=== PATIENT | male | born 1970 | race Caucasian/White ===

== ENCOUNTER 2016-04-30 20:02 | Inpatient (IN) | payer OTHER ==
--- NOTE | ~2016-04-30 | HP ---
Unit #: [id number] #: [id number] Patient: HELEN KIM [id number] [address] [address] [id number] I MR#: [id number] NAME: HELEN KIM. ROOM: 49911 Age: 45 Sex: M Admission Date: 04/30/2016 : 1970 Attending Physician: Jose Luis Lloyd M.D. Primary Care Physician: [facility] Nick HISTORY AND PHYSICAL CHIEF COMPLAINT Right foot wound. HISTORY OF PRESENT ILLNESS The patient is a 45-year-old diabetic male who presented to [facility] emergency department with a complaint of right lower extremity wound. He states it has been present for three to four days, associated with mild pain. No fevers, no nausea, vomiting or diarrhea, associated with worsening right lower extremity redness. He states this redness initially started just on the dorsal aspect of his foot but has started to spread up his lower extremity and is now nearly to his knee. PAST MEDICAL HISTORY Diabetes. PAST SURGICAL HISTORY 1. He had some neck surgery secondary to a brown recluse bite. 2. Finger surgery. 3. He states he had surgery on his right toe secondary to an ingrown toenail years ago. 4. Peripheral neuropathy. SOCIAL HISTORY No tobacco, alcohol or illicit drug use. 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 FAMILY HISTORY Diabetes. ALLERGIES Penicillin. HOME MEDICATIONS 1. Lisinopril 20 mg p.o. daily. 2. Metformin 1000 mg p.o. b.i.d. 3. Claritin 10 mg daily. 4. Glipizide 10 mg p.o. b.i.d. 5. Invokana 100 mg p.o. daily. 6. Neurontin 600 mg p.o. q.i.d. REVIEW OF SYSTEMS Ten point review of systems was obtained, negative except as per HPI. PHYSICAL EXAMINATION Unit #: [id number] #: [id number] Patient: HELEN KIM VITAL SIGNS: Temperature 98.0, pulse 82, blood pressure 146/69. GENERAL: 45-year-old male in no acute distress who appears stated age. HEENT: Pupils equally round. Extraocular movements intact. Mucous membranes dry. NECK: Supple. No JVD, no lymphadenopathy. CARDIAC: Regular rate and rhythm. No murmurs, gallops or rubs. LUNGS: Clear to auscultation bilaterally. ABDOMEN: Nontender, nondistended. Positive bowel sounds. EXTREMITIES: No clubbing or edema. He has got right lower extremity edema that is trace. PSYCH: Alert and oriented x3. Affect is appropriate. NEUROLOGICAL: Cranial nerves II-XII intact grossly. The patient moves all extremities equally and with purpose. SKIN: Right lower extremity erythema to approximately 3 cm below his knee. It is circumferential. It blanches. Otherwise, skin is warm and dry. MUSCULOSKELETAL: No muscle or joint pain, no muscle or joint swelling. DIAGNOSTIC STUDIES LABORATORY: Creatinine is 1.7, glucose 131, white blood cell count is 8.0, hemoglobin 11.1, platelets 496. IMAGING: X-ray of patient's right foot shows no acute abnormalities. ASSESSMENT AND PLAN 1. Cellulitis: The patient has been started on vancomycin and cefepime to cover methicillin resistant Staph aureus, Pseudomonas and Enterobacter. 2. Diabetic foot wound: I have placed a consult to the wound nurse. The patient's foot film shows no evidence of osteomyelitis. 3. Diabetes: The patient was started on low dose sliding scale insulin. 4. Acute kidney injury: Started the patient on fluids and held his BEN inhibitor. His baseline creatinine is unknown. His creatinine has been approximately 1.7 wince the beginning of the month with no other values available since January 2014. 5. Prophylaxis: The patient has been started on Lovenox. Dictated by Jose Luis Lloyd M.D. RAIZA/baldemar TD: 05/01/2016 05:20 JOB #: [id number] HISTORY AND PHYSICAL X Jose Luis Lloyd MD X HISTORY AND PHYSICAL
--- NOTE | ~2016-04-30 | US136 ---
[facility] A Service of [facility] & [facility] RADIOLOGY TEXT RESULTS PATIENT: HELEN KIM LOCATION: [place] [id number] : [birth year] UNIT #: [id number] AGE: [address]: Morales Pichardo MD SEX: M ORDER DR: [id number] [facility] [address] [facility] [place] [facility]. [place], [place] [address] [id number] I MR#: [id number] Acc #: [id number] NAME: HELEN KIM : 1970 SEX: M STUDY DATE/TIME: 05/02/2016 8:34 UNIT: [facility] ROOM: [facility] STUDY DESCRIPTION: US U/L Ext Art Study Ltd Bilat Attending Physician: Morales Pichardo M.D. Ordering Physician: Morales Pichardo M.D. Primary Care Physician: [facility] MEDICAL IMAGING REPORT This report is preliminary unless electronic signature is present EXAM Bilateral lower extremity ankle-brachial indices, 05/02/2016 HISTORY History of diabetes and bilateral lower extremity claudication with diabetic right foot infection. FINDINGS Brachial pressure is 147 mmHg on the right. It is 193 in the right dorsalis pedis and 176 in the left yielding ankle-brachial indices of 1.31 on the right and 1.20 on the left. Digital pressures in the feet are normal bilaterally as well, 120 mmHg on the right and 165 on the left. IMPRESSION Normal ankle-brachial indices of 1.31 on the right and 1.20 on the left with preserved waveforms, as well as normal digital pressures in both feet. Dictated by... Juan Boone M.D. THIS IS AN ELECTRONICALLY VERIFIED REPORT Juan Boone M.D. at 05/03/2016 8:13 AM KANE/ryley TD: 05/02/2016 11:41 JOB #: [id number] MEDICAL IMAGING REPORT COPY
--- NOTE | ~2016-04-30 | CR127 ---
[facility] A Service of [facility] & [facility] RADIOLOGY TEXT RESULTS PATIENT: HELEN KIM LOCATION: [place] [address] : [birth year] UNIT #: [id number] AGE: [address]: Morales Pichardo MD SEX: M ORDER DR: [id number] [facility] [address] [facility]. [place], [place] [address] [id number] I MR#: [id number] Acc #: [id number] NAME: HELEN KIM. : 1970 SEX: M STUDY DATE/TIME: 04/30/2016 19:21 UNIT: [facility] ROOM: 61279 STUDY DESCRIPTION: CR Foot Complete Min 3 View Rt Attending Physician: Jose Luis Lloyd M.D. Ordering Physician: Ajay Davis M.D. Primary Care Physician: [facility], MEDICAL IMAGING REPORT This report is preliminary unless electronic signature is present EXAM Right foot, 3 views, 04/30/2016 1921 hours HISTORY Patient complains of 4-day history of pain, swelling and numbness and tingling of the foot. Symptoms for 4 days after patient cut foot inside steel-toe boot. COMPARISON 04/11/2013 FINDINGS AP, lateral and oblique views demonstrate diffuse soft tissue swelling over the visualized portions of the lower leg and foot. There is no soft tissue gas or foreign body. There is sclerotic change at the distal aspect of the proximal phalanx where lucency was seen on prior study 04/11/2013, likely a healed area of prior trauma or infection. There is subtle lateral periosteal thickening at the midshaft of the fourth metatarsal, new from the prior study, which could represent a healed or healing stress fracture. No acute fracture is seen. IMPRESSION 1. Diffuse significant subcutaneous edema over the visualized portions of the lower leg and diffusely over the foot with no acute fracture, foreign body or soft tissue gas. 2. Sclerotic appearance at distal first metatarsal where previous inflammation was seen on MRI 2013. This is likely healing response. 3. Very subtle lateral periosteal thickening along the midshaft of the fourth metatarsal could represent a healed or healing stress fracture. STAT * RESULT [facility] A Service of [facility] & [facility] RADIOLOGY TEXT RESULTS PATIENT: HELEN KIM LOCATION: [place] [address] : [birth year] UNIT #: [id number] AGE: [address]: Morales Pichardo MD SEX: M ORDER DR: Dictated by... Penelope Pruitt M.D. THIS IS AN ELECTRONICALLY VERIFIED REPORT Penelope Pruitt M.D. at 05/01/2016 9:34 AM SUSANNAH/soni TD: 04/30/2016 19:51 JOB #: [id number] MEDICAL IMAGING REPORT COPY
--- NOTE | ~2016-04-30 | US85 ---
[facility] A Service of [facility] RADIOLOGY TEXT RESULTS PATIENT: HELEN KIM LOCATION: [facility] : 74 UNIT #: [id number] AGE: [address]: Morales Pichardo MD SEX: M ORDER DR: [id number] [facility] [address] [facility] [address] [place], [place] [address] [id number] I MR#: [id number] Acc #: [id number] NAME: HELEN KIM : 1970 SEX: M STUDY DATE/TIME: 05/01/2016 19:39 UNIT: [facility] ROOM: [address] [place] [address] DESCRIPTION: US LE Veins Unilat or Ltd Stdy Attending Physician: Morales Pichardo M.D. Ordering Physician: Radha Pena D.P.M. [facility] MED[facility] IMAGING REPORT This report is preliminary unless electronic signature is present EXAM Right lower extremity venous Doppler exam, 05/01/2016 1939 hours HISTORY Right lower extremity pain, swelling and redness for 4 days. History of steel toe from boot eroding sore on foot 4 days ago. Red bump on cook. History of neuropathy. COMPARISON None. FINDINGS Multiple transverse and longitudinal sonographic images were obtained through the lower extremity venous system with compression, color flow and Doppler. There is no evidence of deep venous thrombosis. Vessels are compressible. There is flow with color and Doppler. Note is made of enlarged lymph nodes in the left inguinal region measuring up to 3.4 x 1.0 x 3.1 cm. IMPRESSION 1. Negative left lower extremity venous Doppler exam. No evidence of DVT. 2. Enlarged left inguinal lymph nodes are present. Dictated by... Penelope Pruitt M.D. THIS IS AN ELECTRONICALLY VERIFIED REPORT Penelope Pruitt M.D. at 05/02/2016 9:25 AM [facility] A Service of [facility] RADIOLOGY TEXT RESULTS PATIENT: HELEN KIM LOCATION: [place] [address] : [birth year] UNIT #: [id number] AGE: [address]: Morales Pichardo MD SEX: M ORDER DR: SUSANNAH/soni TD: 05/02/2016 00:12 JOB #: [id number] MEDICAL IMAGING REPORT COPY
--- NOTE | ~2016-04-30 | BMI ---
[facility] Nutrition Therapy DATE: 05/02/16 Patient: HELEN IKM Physician: BETH Address: [address] Room/Bed: [address] [place] [address], Zip: [place] [address] Admit Date: 04/30/16 Date of : [birth year] Height: 6 0 Weight: 324 147.4 HIGH BMI NOTE: DX: 45 Y.O. MALE ADMITTED FOR CELLULITIS ANTHROPOMETRICS: 6'0", WT: 324# (147 KG), BMI: 43.9 DIET: CC INTERVENTION: 1. CC DIET RECOMMENDATIONS: 1. RECOMMEND TO ADD HH TO CURRENT DIET ORDER ABOVE TO PROMOTE GRADUAL WEIGHT LOSS TOWARDS HEALTHY BMI (19.0-25.0) OR +/-10%IBW RD WILL F/U PER PROTOCOL Respectfully, GLENNY BROWN MS, RD, LD Food and Nutritional Services [facility] cc: client file
--- NOTE | ~2016-04-30 | DS ---
Unit #: [id number] #: [id number] Patient: HELEN KIM [id number] [address] [place], [place] [address] [id number] I MR#: [id number] NAME: HELEN KIM. ROOM: 465 Age: 45 Sex: M Admission Date: 04/30/2016 : 1970 Discharge Date: 05/03/2016 Attending Physician: Morales Pichardo M.D. Primary Care Physician: [facility] DISCHARGE SUMMARY DISCHARGE DIAGNOSES 1. Cellulitis in the right foot. 2. Diabetes foot. 3. Type 2 diabetes uncontrolled with A1c of 8.4. 4. Chronic kidney disease, stage 3. 5. Essential hypertension. 6. Morbidly obese with BMI of 44. 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 PROCEDURES None. IMAGING STUDIES Consists of x-ray of the foot on 04/30/2016. Impression: 1. Diffuse significantly subcutaneous edema over the visualized portions of the lower leg and diffusely over the foot with no acute fracture, foreign body, or soft tissue gas. 2. Sclerotic appearance at distal first metatarsal where previous inflammation was seen on MRI 03/01/2017 there. This is likely a healing response. 3. Very subtle lateral periosteal thickening along the mid shaft of the fourth metatarsal, could represent a healed or healing stress fracture. Left lower extremity ultrasound: 1. Negative for left lower extremity venous Doppler exam, no evidence DVT. 2. Enlarged left inguinal lymph nodes are present. JOSE ANGEL of the ankle-brachial index of the left lower extremity. Impression: 1. Normal ankle-brachial indices of 1.31 on the right and 1.20 on the left with preserved waveforms, as well as normal digital pressures on both feet. LABORATORY STUDIES On the day of discharge, patients cultures includes blood culture with no growth, and wound culture of the foot with a gram variable cocci. Glucose of 243, BUN 33, creatinine 1.6, sodium 135, potassium 4.4, chloride 107, CO2 25, calcium 8.5, total protein of 7.4, albumin 3.2, total bilirubin is 0.5. CBC with WBC of 9.5, rbc's 3.95, hemoglobin 10.8, hematocrit 33.7, MCV 83.4, MCH 27.4, MCHC is 32.8, RDW 13.8, platelet is 454, MPV is 7.5. Unit #: [id number] #: [id number] Patient: HELEN KIM HOSPITAL COURSE The patient is a 45-year-old male with a past medical history of diabetes and essential hypertension, presents to the emergency department with complaint of right lower extremity wound. He states that this has been present for three to four days prior to admission and associated with mild pain. The patient had denied fever, nausea, vomiting, diarrhea, associated with pain but he had had worsening of right lower extremity redness. He states that the redness initially started just at the dorsal aspect of the fifth but has started to spread into his lower extremity and is close to below his knee. The patient was admitted for cellulitis of the right foot to be treated with IV antibiotics including vancomycin and cefepime. The patient was seen in consultation with the wound care nurse and patient was hydrated to due to unknown baseline an d kidney function. With regards to his chronic kidney disease, the patient disappeared to have chronic kidney disease with a creatinine of 1.6. On the day of discharge his creatinine has been maintained on 51.5 to 1.7 during this hospitalization, despite IV fluid hydration, due to patient's uncontrolled diabetes with A1c of 8.5 and an infected foot. Podiatry was consulted. The patient had a lower extremity Doppler to evaluate for the possibility of DVT, which was negative with much swelling and there was very faint pulse in right foot, therefore, an ankle-brachial index was ordered, which revealed good flow to bilateral foot, therefore podiatry had offered no surgical intervention at this time. At this time, the patient's blood culture had no growth. Wound culture is swabbed by podiatry, had very few cocci. It is thought that patient is stable to be discharged with outpatient IV infusion of Orbactiv at short stay with regards to patient's uncontrolled diabetes with A1c of 8.5. I have initiated Levemir 10 units subcutaneously at bedtime and to be increased if needed by primary care physician. The patient will also be discharged with NovoLog low dose sliding scale insulin. Patient was instructed to keep a log of his premeal and bedtime insulin to hold his insulin if blood sugars less than 150, in follow with his primary care physician for further adjustment in his insulin. Due to patient's chronic kidney disease, I am recommending the patient to not restart back on his metformin. DISCHARGE CONDITION Stable. DISCHARGE FOLLOWUP Follow up with primary care physician within one to two weeks. Follow up with podiatry as needed. I am asking [facility] to come out to help with wound care. DISCHARGE MEDICATIONS 1. Stopping metformin 1,000 mg orally twice daily as previously. 2. Neurontin 600 mg oral 4 times daily. 3. Claritin 10 mg orally daily. 4. Lisinopril 20 mg orally daily. 5. Levemir 10 units subcutaneously every evening, hold for blood sugar of less than 110. 6. NovoLog low dose sliding scale insulin prior to meals and at bedtime. 7. Invokana 100 mg orally daily. 8. Glipizide 10 mg orally twice daily. 9. Orbactiv 120 mg IV infused over 3 hours at the short stay clinic. Dictated by... Meagan Landrum PA-C for Morales Pichardo M.D. Unit #: [id number] #: [id number] Patient: HELEN KIM LISA/iveth TD: 05/04/2016 07:49 JOB #: [id number] DISCHARGE SUMMARY X X DISCHARGE SUMMARY
[2016-04-30 18:26] LABS: BASOPHIL# 0.2 X10e3 (0-0.3); BASOPHIL% 2.3 % (0-2.5); EOSINOPHIL# 0.4 X10e3 (0-0.7); EOSINOPHIL% 5.3 % (0.0-7.0); HEMATOCRIT 34.3 % (38.0-50.0); HEMOGLOBIN 11.1 gm/dL (13.0-16.0); LYMPHOCYTE% 25.4 % (17.0-45.0); MEAN CELL VOLUME 83.9 FL (83-96); MEAN CORPUSCULAR HEMOGLOBIN 27.2 PG (28-34); MEAN CORPUSCULAR HGB CONC 32.4 g/dL (30-36); MEAN PLATELET VOLUME 7.4 FL (6.5-11.5); MONOCYTE# 0.8 X10e3 (0-1.0); MONOCYTE% 10.1 % (3.0-12.0); NEUTROPHIL# 4.5 X10e3 (1.5-7.1); NEUTROPHIL% 56.9 % (40-75); PLATELET COUNT 496 X10e3 (140-420); RED BLOOD COUNT 4.09 X10e (3.90-5.60); RED CELL DISTRIBUTION WIDTH 13.8 % (11.0-15.5)
[2016-04-30 18:28] LABS: DIFF IND NO
[2016-04-30 18:50] LABS: BUN/CREATININE RATIO 13.52; CREATININE SERUM 1.7 mg/dL (0.6-1.4); POTASSIUM 4.6 mmol/L (3.5-5.1)
[~2016-04-30 20:02] MED LIST: CLARITIN10 M2 PO; FLEXERIL10 MG PO; GLIPIZIDE10 MG PO; GLUCOTROL PO; INVOKANA100 MG PO; LEVAQUIN750 M1 PO; LISINOPRIL20 MG PO; LORTAB 5/500 TA1 TA1 PO; MEDROL4 MG/DOSE- PO; METFORMIN HCL1000 M1 PO; METFORMIN PO; MOTRIN100 MG PO; NEURONTIN600 MG PO; PHENERGAN25 M1 PO; VICODIN 5/1 TAB 5/50 PO; ZYVOX600 MG PO
[2016-05-01 04:59] LABS: BASOPHIL# 0.2 X10e3 (0-0.3); BASOPHIL% 1.8 % (0-2.5); DIFF IND NO; EOSINOPHIL# 0.6 X10e3 (0-0.7); EOSINOPHIL% 6.1 % (0.0-7.0); HEMATOCRIT 33.1 % (38.0-50.0); HEMOGLOBIN 10.7 gm/dL (13.0-16.0); LYMPHOCYTE# 2.2 X10e3 (1.0-3.5); MEAN CORPUSCULAR HEMOGLOBIN 27.2 PG (28-34); MEAN CORPUSCULAR HGB CONC 32.4 g/dL (30-36); MEAN PLATELET VOLUME 7.6 FL (6.5-11.5); MONOCYTE# 0.9 X10e3 (0-1.0); MONOCYTE% 9.5 % (3.0-12.0); NEUTROPHIL# 5.3 X10e3 (1.5-7.1); NEUTROPHIL% 58.6 % (40-75); PLATELET COUNT 463 X10e3 (140-420); RED BLOOD COUNT 3.95 X10e (3.90-5.60); RED CELL DISTRIBUTION WIDTH 13.8 % (11.0-15.5)
[2016-05-01 05:19] LABS: BUN/CREATININE RATIO 14.37; CALCIUM SERUM 8.3 mg/dL (8.4-10.2); CREATININE SERUM 1.6 mg/dL (0.6-1.4); GLOM FILT RATE Estimated 50.4 mL/min (>60); POTASSIUM 4.3 mmol/L (3.5-5.1)
[2016-05-02 03:25] LABS: BASOPHIL# 0.1 X10e3 (0-0.3); BASOPHIL% 1.4 % (0-2.5); EOSINOPHIL# 0.5 X10e3 (0-0.7); EOSINOPHIL% 5.5 % (0.0-7.0); HEMATOCRIT 32.8 % (38.0-50.0); HEMOGLOBIN 10.6 gm/dL (13.0-16.0); LYMPHOCYTE% 21.7 % (17.0-45.0); MEAN CELL VOLUME 83.8 FL (83-96); MEAN CORPUSCULAR HEMOGLOBIN 27.1 PG (28-34); MEAN CORPUSCULAR HGB CONC 32.4 g/dL (30-36); MEAN PLATELET VOLUME 7.4 FL (6.5-11.5); MONOCYTE# 0.8 X10e3 (0-1.0); MONOCYTE% 8.9 % (3.0-12.0); NEUTROPHIL# 5.6 X10e3 (1.5-7.1); NEUTROPHIL% 62.5 % (40-75); PLATELET COUNT 464 X10e3 (140-420); RED BLOOD COUNT 3.91 X10e (3.90-5.60); RED CELL DISTRIBUTION WIDTH 13.7 % (11.0-15.5)
[2016-05-02 03:26] LABS: DIFF IND NO
[2016-05-02 03:35] LABS: BUN/CREATININE RATIO 16.66; CALCIUM SERUM 8.8 mg/dL (8.4-10.2); CREATININE SERUM 1.5 mg/dL (0.6-1.4); GLOM FILT RATE Estimated 54.3 mL/min (>60)
[2016-05-03 02:47] LABS: HEMOGLOBIN 10.8 gm/dL (13.0-16.0); MEAN CELL VOLUME 83.4 FL (83-96); MEAN CORPUSCULAR HEMOGLOBIN 27.4 PG (28-34); MEAN CORPUSCULAR HGB CONC 32.8 g/dL (30-36); MEAN PLATELET VOLUME 7.5 FL (6.5-11.5); RED BLOOD COUNT 3.95 X10e (3.90-5.60); RED CELL DISTRIBUTION WIDTH 13.8 % (11.0-15.5); WHITE BLOOD COUNT 9.5 X10e3 (4.0-10.5)
[2016-05-03 03:11] LABS: BUN/CREATININE RATIO 20.62; CALCIUM SERUM 8.5 mg/dL (8.4-10.2); CREATININE SERUM 1.6 mg/dL (0.6-1.4); GLOM FILT RATE Estimated 50.4 mL/min (>60); POTASSIUM 4.4 mmol/L (3.5-5.1)
[2016-05-03] MEDS ORDERED: ORBACTIV400 MG IV (12:45)
[2016-05-03] MEDS ORDERED: LEVEMIR100 UNITS/ SUBQ (12:48)
[2016-05-03] MEDS ORDERED: NOVOLOG100 U/ML SUBQ (12:51)
== END 2016-05-03 13:50 | disposition home or self-care (01) | DRG 623 ==
LOC: CED 20:02 → CEDOF 22:32 → C4C 05-01 09:20
PROVIDERS: Emergency Medicine; Internal Medicine; Physician Assistant Medical
PROC: 0JBQ0ZZ Excision of Right Foot Subcutaneous Tissue and Fascia, Open Approach (ICD-10-PCS; principal; 2016-05-01)
DX: E11.621 Type 2 diabetes mellitus with foot ulcer (principal); L03.115 Cellulitis of right lower limb; L97.519 Non-pressure chronic ulcer of other part of right foot with unspecified severity; E11.42 Type 2 diabetes mellitus with diabetic polyneuropathy; E11.22 Type 2 diabetes mellitus with diabetic chronic kidney disease; N17.9 Acute kidney failure, unspecified; N18.3 Chronic kidney disease, stage 3 (moderate); Z68.41 Body mass index [BMI] 40.0-44.9, adult; Z79.84 Long term (current) use of oral hypoglycemic drugs; E11.628 Type 2 diabetes mellitus with other skin complications; Z88.0 Allergy status to penicillin; E66.01 Morbid (severe) obesity due to excess calories; E11.65 Type 2 diabetes mellitus with hyperglycemia; I12.9 Hypertensive chronic kidney disease with stage 1 through stage 4 chronic kidney disease, or unspecified chronic kidney disease
CPT/HCPCS: 36415; 73630; 80048; 80202; 82947; 83036; 85025; 85027; 87040; 87070; 87077; 87205; 93922; 93971; 96361; 96365; 96368; 99285; J0692; J1815; J3370

== ENCOUNTER 2016-09-18 16:59 | Inpatient (IN) | payer OTHER ==
--- NOTE | ~2016-09-18 | OR ---
Unit #: [id number] #: [id number] Patient: HELEN KIM [id number] [address] [place], [place] [address] [id number] I MR#: [id number] NAME: HELEN KIM. ROOM: 469 Date of Procedure: 09/21/2016 Admission Date: 09/19/2016 Surgeon: Brodie Leyva M.D. : 1970 Attending Physician: Isabel Pickett M.D. Primary Care Physician: Counts Include [facility] OPERATIVE REPORT PREOPERATIVE DIAGNOSES 1. Right fifth metatarsal head osteomyelitis. 2. Septic right fifth metatarsophalangeal joint. POSTOPERATIVE DIAGNOSES 1. Right fifth metatarsal head osteomyelitis. 2. Septic right fifth metatarsophalangeal joint. PROCEDURE PERFORMED Right fifth toe and fifth metatarsal partial amputation (68055). 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 ANESTHESIA General. INDICATIONS FOR SURGERY The patient is a 46-year-old non-insulin dependent diabetic, who is morbidly obese, who stepped on a rock, which caused an ulceration on the plantar aspect of his right foot. He noticed an ulceration under the right fifth toe 2 weeks ago and this is now worsen to cause swelling, warmth, and erythema. The patient complains of pain in the right plantar lateral foot. Arterial Dopplers show satisfactory blood supply to the foot. MRI documents fifth metatarsal head osteomyelitis. The patient is therefore admitted to undergo right fifth toe and fifth ray amputation. DESCRIPTION OF PROCEDURE The patient was taken to the operating room and placed in supine position and general anesthetic was induced. The right foot was identified as the correct operative extremity during the time-out procedure. The IV antibiotic protocol was not followed because the patient was on preoperative IV antibiotics. The right foot was then prepped and draped in the usual sterile fashion. The foot was exsanguinated with an Esmarch bandage, which was left wrapped around his ankle to act as a tourniquet. A racket incision was made along the lateral aspect of the fifth metatarsal and extended around the base of the fifth toe. The subcutaneous tissue was carefully divided. Dissection proceeded directly down to the fifth metatarsophalangeal joint. Purulence was obtained in the joint and this was cultured for aerobic and anaerobic bacteria. The collateral ligaments, extensor tendons, and flexor tendons Unit #: [id number] #: [id number] Patient: HELEN KIM were divided and the toe was removed and sent to pathology. The fifth metatarsal was then exposed subperiosteally. Baby Hohmann retractors were placed and the microsagittal saw was used to cut the fifth metatarsal at the junction of the proximal third and distal two-thirds. The bone was sent to pathology. The wounds were copiously irrigated. All necrotic-appearing tissue was debrided. The plantar ulceration was left intact. The tourniquet was released and bleeding was controlled with electrocautery. The subcutaneous tissue was closed with interrupted 2-0 Vicryl sutures. The skin was closed with 3-0 nylon interrupted [id number] sutures. Xeroform gauze, dressing, sponges, cast padding, Enio wrap, and postoperative shoe were placed. The patient was then transported to the recovery room in stable condition. ESTIMATED BLOOD LOSS Minimal. COMPLICATIONS None. SPECIMENS Right fifth toe and fifth metatarsal as well as aerobic and anaerobic cultures, fifth metatarsophalangeal joint. PLAN The patient will continue IV antibiotics per recommendations of the Infectious Disease service. He will follow up in my office in 1 week for wound check. I would expect his plantar ulceration to heal in secondarily. Dictated by.Praful Dey/natalia TD: 09/21/2016 18:37 JOB #: [id number] OPERATIVE REPORT Page 1 of 1 X Larissa Leyva MD X PROCEDURE OPERATIVE NOTE
--- NOTE | ~2016-09-18 | CR127 ---
[facility] A Service of [facility] & [facility] RADIOLOGY TEXT RESULTS PATIENT: HELEN KIM LOCATION: [place] [address] : [birth year] UNIT #: [id number] AGE: [address]: Isabel Pickett MD SEX: M ORDER DR: [id number] [facility] [address] [place], [place] [address] [id number] I MR#: [id number] Acc #: [id number] NAME: HELEN KIM. : 1970 SEX: M STUDY DATE/TIME: 09/18/2016 17:54 UNIT: [facility] ROOM: [facility] STUDY DESCRIPTION: CR Foot Complete Min 3 View Rt Attending Physician: Isabel Pickett M.D. Ordering Physician: Christo Barraza M.D. [facility] MED[facility] IMAGING REPORT This report is preliminary unless electronic signature is present EXAM Right foot, 3 views, 09/18/2016. HISTORY Right foot pain and swelling after stepping on a sharp rock 3 days ago. FINDINGS Three views of the right foot demonstrated no fracture. The bones are normally mineralized. There is soft tissue swelling about the right foot. No foreign body is seen. IMPRESSION Soft tissue swelling about the right foot. No evidence of fracture or radiopaque foreign body. Dictated by... Albin Martinez M.D. THIS IS AN ELECTRONICALLY VERIFIED REPORT Albin Martinez M.D. at 09/20/2016 6:18 AM KENDALL/ivania TD: 09/19/2016 13:55 JOB #: [id number] MEDICAL IMAGING REPORT Page 1 of 1 COPY
--- NOTE | ~2016-09-18 | CO ---
Unit #: [id number] #: [id number] Patient: HELEN KIM [id number] [address] [place], [place] [address] [id number] I MR#: [id number] NAME: HELEN KIM. ROOM: 469 Age: 46 Sex: M Admission Date: 09/19/2016 : 1970 Attending Physician: Isabel Pickett M.D. Primary Care Physician: [facility]. Consultation Date: 09/20/2016 CONSULTATION REPORT INFECTIOUS DISEASE CONSULTATION Patient is admitted by Dr. Almanza. REASON FOR CONSULTATION Diabetic foot ulcer. HISTORY OF PRESENT ILLNESS This is a 46-year-old male with a history of diabetes greater than 20 years. The patient also has noted peripheral neuropathy. Patient reports that he had injury to his foot greater than one week ago where he stepped on a stone. Patient reports that he did get a wound and he was doing local wound care at home. Patient reports he was not taking any antibiotics at home and he was not having any fever; however, he continued with pain and swelling and came to the emergency room. The patient's initial film was not consistent with osteomyelitis; however, patient was admitted for soft tissue infection and further wound care management. PAST MEDICAL HISTORY Includes neuropathy, diabetes, and hypertension. PAST SURGICAL HISTORY Cervical disc surgery, surgery on finger, right great to surgery. ALLERGIES Penicillin with unknown reaction. He reports this happened as a child. MEDICATIONS Patient is currently on vancomycin and cefepime. Further medications please refer to patient's MAR. SOCIAL HISTORY The patient has no evidence of alcohol or tobacco abuse. He lives at home with family. REVIEW OF SYSTEMS The patient denies any fevers, chills, chest pain, shortness of breath, wheezes, productive cough. He does report nausea, dry heaves, no diarrhea. He reports he is able to feel pain in his foot, with some drainage and swelling noted. PHYSICAL EXAMINATION VITAL SIGNS: Temperature is 98.5 with a T. max of 100.0, pulse 79, blood pressure 115/54, respiratory rate is 18. Unit #: [id number] #: [id number] Patient: HELEN KIM GENERAL: This is a no apparent distress male who does appear somewhat ill during my exam. HEENT: His pupils are equal. NECK: Supple. CARDIOVASCULAR: S1 and S2, regular rate and rhythm. PULMONARY: Clear to auscultation bilaterally with no wheezes or rhonchi noted. ABDOMEN: Positive bowel sounds, soft, obese, and rounded. EXTREMITIES: Right foot reveals a plantar wound that is approximately a quarter size. Directly center to the wound there appears to be some purulent draining material with positive odor. DIAGNOSTIC STUDIES LABORATORY STUDIES: BUN 25, creatinine 1.6, sodium 137, potassium 4.7, chloride 107, CO2 24, bilirubin 0.3, AST 13, ALT 14, lactic acid is 1.1, CRP was not done this admission. White blood cell count is 9.2, hemoglobin 10.1, hematocrit 31.6, platelets 406. Microbiology data - foot cultures currently pending. MRI: MRI is currently pending as patient was unable to tolerate at this time secondary to nausea. IMAGING STUDIES: Plain film showed soft tissue swelling of the right foot without any evidence of fracture of radiopaque foreign body. IMPRESSION This is a 46-year-old diabetic now, status post trauma to his right foot approximately one week go after stepping on a stone. Patient now with nonresolving diabetic foot ulcer and need to rule out deeper infection including osteomyelitis. At this time patient has been seen by surgery and agree with MRI and further debridement of the wound. The patient does have a known penicillin allergy but appears to be tolerating cefepime without difficulty except for mild nausea. At this time will continue vancomycin, cefepime and add anaerobic coverage due to diabetic foot wound with Flagyl 500 mg IV q.8 hours. Will continue local wound are. Will followup all culture results and further recommendations to follow. Thank you for allowing us to participate in the care of this patient. Further recommendations to follow pending patient's clinical course. Dictated by... Courtney Cassidy A.P.R.N. for Praful Muñoz TD: 09/20/2016 11:49 JOB #: [id number] Unit #: [id number] #: [id number] Patient: HELEN KIM CONSULTATION REPORT Page 1 of 1 X X CONSULTATION REPORT
--- NOTE | ~2016-09-18 | HP ---
Unit #: [id number] #: [id number] Patient: HELEN KIM [id number] [address] [place], [place] [address] [id number] I MR#: [id number] NAME: HELEN KIM. ROOM: 469 Age: 46 Sex: M Admission Date: 09/18/2016 : 1970 Attending Physician: Charmaine Almanza M.D. Primary Care Physician: [facility]. HISTORY AND PHYSICAL CHIEF COMPLAINT Stepped on a sharp rock. HISTORY OF PRESENT ILLNESS The patient is a 46-year-old male with a history of a diabetes mellitus, brought to the emergency room with a right foot wound. The patient stated the patient has been having problems with the right foot for the last few days. The patient stepped on a sharp rock. The patient was applying the peroxide without improvement and presented to the emergency room. The patient has an open wound with a minimal purulent drainage and minimal cellulitis around the wound at the bottom of the right foot on the lateral side; denies any fevers, chills, nausea or vomiting. PAST MEDICAL HISTORY History of a neuropathy and diabetes mellitus. PAST SURGICAL HISTORY History of a neck surgery, finger surgery, surgery to right toe secondary to ingrown toenail and peripheral neuropathy. SOCIAL HISTORY No history of smoking cigarettes, drinking alcohol or any illicit drug abuse. 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 FAMILY HISTORY Positive for diabetes. ALLERGIES Penicillin. HOME MEDICATIONS He is on Glucotrol, Glucophage, Claritin, lisinopril, Invokana. REVIEW OF SYMPTOMS Fourteen-point review of symptoms performed and only pertinent positive findings as described above, remaining are negative. PHYSICAL EXAMINATION GENERAL APPEARANCE: On examination the patient is lying on a bed not in acute distress. VITAL SIGNS: Temperature 99, pulse 102, respiratory rate 18, blood pressure 124/65, sating 99% at room air. HEENT: Head atraumatic and normocephalic. Pupils equal, round and reacting to light and accommodation. Extraocular movements are intact. Unit #: [id number] #: [id number] Patient: HELEN KIM NECK: Supple. LUNGS: Decreased air entry at the bases. HEART: Regular rate and rhythm. ABDOMEN: Soft, positive bowel sounds. EXTREMITIES: Patient has open wound on the bottom of the right foot with minimal purulent drainage and minimal cellulitis around the wound and pulses palpable peripherally. NEUROLOGIC: Awake, alert, oriented. No gross focal motor deficit. DIAGNOSTIC STUDIES LABORATORY DATA: Glucose 116, WBC 11.6, hemoglobin 9.5, hematocrit 29.5, platelets 407 and sodium 133, potassium 3.9, glucose 110, BUN 30, creatinine 2, calcium 8.7, AST 14, ALT 13, albumin 3. IMAGING: The x-ray shows the soft tissue swelling. No fractures or bony destruction. ASSESSMENT 1. Diabetic foot ulcer. 2. Acute kidney injury. PLAN Plan to admit the patient to the observation with the telemetry. Continue with the IV fluids with normal saline at 75 mL per hour. Hold the Glucophage and the Glucotrol and continue with the IV antibiotics with Maxipime 1 g q.12 h. Follow with the lactate. If it is high, continue with the sepsis protocol and continue with the wound care and continue with Santyl ointment to the wound and wound care consult and repeat the labs again in the morning and sliding scale low dose and Accu-Cheks a.c. and h.s. and further recommendations will follow. Dictated by Praful Sotomayor/edy TD: 09/18/2016 20:54 JOB #: [id number] HISTORY AND PHYSICAL Page 1 of 1 X CHARMAINE ALMANZA MD X HISTORY AND PHYSICAL
--- NOTE | ~2016-09-18 | MR59 ---
[facility] A Service of [facility] RADIOLOGY TEXT RESULTS PATIENT: HELEN KIM LOCATION: [facility] 469-01 : [birth year] UNIT #: [id number] AGE: [address]: Isabel Pickett MD SEX: M ORDER DR: [id number] [facility] [address] [facility]. [place], [place] [address] [id number] I MR#: [id number] Acc #: [id number] NAME: HELEN KIM : 1970 SEX: M STUDY DATE/TIME: 09/20/2016 10:07 UNIT: [facility] ROOM: [facility] STUDY DESCRIPTION: MR Foot WWo Contrast Rt Attending Physician: Isabel Pickett M.D. Ordering Physician: Shay Sanders M.D. Primary Care Physician: [facility] REPORT This report is preliminary unless electronic signature is present. EXAM MRI of the right foot with and without contrast HISTORY 46-year-old male long history of diabetes presents with right foot wound. Injured foot on rock. Patient with open wound with drainage lateral right foot. COMPARISON Right foot films 09/18/2016. FINDINGS Multiplanar, multiecho imaging was performed of the right forefoot utilizing a high field magnet and dedicated protocol. Coronal T1-weighted images were performed following IV gadolinium. Soft tissue changes along the plantar and lateral aspect of the foot at the level of the fifth MTP joint compatible with a penetrating ulcer. There is corresponding marrow change within the fifth metatarsal head and neck with T1 marrow replacement and enhancement postcontrast as well as marrow edema. Findings all compatible with active osteomyelitis. No significant osteolysis. There is a small amount of joint fluid but no definitive septic arthritis. Generalized soft tissue swelling and edema noted about the foot with enhancement of the dorsal soft tissues as well as enhancement along the lateral aspect of the foot at the level of the fifth toe consistent with cellulitis. No drainable fluid collection or abscess. Chronic degenerative change is noted within the first MTP joint. Mild atrophy of the intrinsic foot musculature compatible with longstanding neurovascular disease. IMPRESSION 1. MRI findings compatible with osteomyelitis involving the fifth metatarsal head and neck with surrounding soft tissue swelling and STS. [facility] A Service of [facility] RADIOLOGY TEXT RESULTS PATIENT: HELEN KIM LOCATION: [facility] 469-01 : [birth year] UNIT #: [id number] AGE: [address]: Isabel Pickett MD SEX: M ORDER DR: edema compatible with cellulitis and evidence of a shallow penetrating ulcer. No convincing evidence of septic arthritis. 2. Generalized soft tissue swelling and edema about the foot with changes compatible with longstanding neurovascular disease as well as enhancement and soft tissue swelling over the dorsum of the foot which may imply additional areas of cellulitis. No drainable fluid collection or abscess. Dictated by... Jasmine Reynoso M.D. THIS IS AN ELECTRONICALLY VERIFIED REPORT Jasmine Reynoso M.D. at 09/22/2016 7:25 AM MITCH/sirena TD: 09/21/2016 08:08 JOB #: [id number] MRI CENTER REPORT Page 1 of 1 COPY
--- NOTE | ~2016-09-18 | DS ---
Unit #: [id number] #: [id number] Patient: HELEN KIM [id number] [address] [address] [id number] I MR#: [id number] NAME: HELEN KIM. ROOM: 469 Age: 46 Sex: M Admission Date: 09/19/2016 : 1970 Discharge Date: 09/22/2016 Attending Physician: Isabel Pickett M.D. Primary Care Physician: [facility] DISCHARGE SUMMARY ADMISSION DIAGNOSES 1. Diabetic foot ulcer. 2. Acute kidney injury. DISCHARGE DIAGNOSES 1. Diabetic foot ulcer, right fifth metatarsal head osteomyelitis and septic right fifth metatarsal phalangeal joint. 2. Chronic kidney disease. 3. Chronic anemia. 4. Hypertension, controlled. 5. Obesity, BMI 39. 6. Positive risk factors for obstructive sleep apnea per Stop-Bang protocol. 7. Type 2 diabetes mellitus. STEEL DIE ENGRAVER Brodie Leyva M.D. Orthopedic Surgery. PROCEDURES Right fifth toe and fifth metatarsal partial amputation. Right-sided PICC line placement under ultrasound and fluoroscopic guidance. DIAGNOSTIC STUDIES LABORATORY RESULTS: WBC 10.1, hemoglobin 8.7, hematocrit 27.0, platelet count 387,000. Sodium 137, potassium 4.3, chloride 107, CO2 of 26, glucose 197, BUN 24, creatinine 1.7, calcium 8.2, magnesium 1.8. C-reactive protein 7.8, sedimentation rate 109, albumin 2.7. IMAGING STUDIES: MRI of the right foot with and without contrast, impression findings compatible with osteomyelitis involving the fifth metatarsal head and neck with surrounding soft tissue swelling and edema compatible with cellulitis and evidence of a shallow penetrating ulcer. No convincing evidence of septic arthritis. No drainable fluid collection or abscess. Please refer to report for complete information. Right foot aerobic and anaerobic wound culture results pending at this time. CONDITION Stable. DISPOSITION Home with [facility] to follow for IV antibiotics as dictated under discharge medication. Unit #: [id number] #: [id number] Patient: HELEN KIM DISCHARGE MEDICATIONS Cefepime 2 g IV q.12 hours through 10/13/2016. The patient received both doses of cefepime today prior to discharge. Daptomycin 6 mg/kg IV daily through 10/13/2016. Please note, the patient's IV vancomycin has been discontinued. The patient has not received vancomycin today, but is to receive one dose of daptomycin prior to discharge home. Claritin 10 mg p.o. daily, Colace 100 mg p.o. b.i.d. p.r.n. constipation [id number], Zestril 20 mg p.o. daily, Percocet 5/325 mg tab one p.o. q.4 hours p.r.n. moderate pain. Prescription written by Dr. Pickett, #30, no refills. Glipizide XL 10 mg tab one p.o. b.i.d. Please note, the patient's Glucophage has been discontinued given the patient's history of chronic kidney disease. ACTIVITY The patient may ambulate with a walker per orthopedic orders. The patient is to remain strictly nonweightbearing to the right lower extremity and is to keep the right foot in a postoperative shoe with ambulation with a walker. The patient is to work with physical therapy today to determine if the patient is stable for discharge. HOSPITAL COURSE The patient is a 46-year-old male, who presented to [facility] via the emergency room with chief complaint of right foot wound and pain. The patient's history indicates he stepped on a sharp rock several days prior to presentation, but ultimately developed an open wound with purulent drainage on the bottom of the right foot at the lateral aspect of the foot. The patient has a history of peripheral neuropathy and diabetes mellitus. Given the patient's presentation and history of diabetes, he was admitted to the hospital for further evaluation and management of his condition. Please refer to history and physical report for complete details. Dr. Leyva was consulted for further evaluation and management of the patient's right lower extremity. Per review of the consultation notes, there was an area of gross purulent drainage and necrosis of the right foot wound. Infectious Disease service was consulted for IV antibiotic management. Wound cultures were sent and results are pending at this time. An MRI of the foot was performed with results as dictated above. It was determined by Dr. Leyva the patient would require operative management and underwent right fifth toe and ray amputation yesterday. The patient tolerated the procedure well. Other than some mild postoperative nausea without vomiting, his vital signs are stable and he is doing well. 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 Leyva and after the patient receives IV antibiotics as dictated above. The patient has been cleared for discharge by Dr. Pickett. Physical therapy will also evaluate the patient prior to discharge. The patient's renal function has remained stable with baseline creatinine approximately 1.7, per review of previous values in [facility], this is the patient's creatinine baseline. He is voiding without difficulty. The patient is also noted to have chronic anemia likely secondary to chronic kidney disease. His hemoglobin and hematocrit have been stable. He is to follow up with his primary care doctor. The patient's BMI is 39 and he is at high risk for obstructive sleep apnea per Stop-Bang protocol. The patient has not had issues during the hospitalization in this regard. However, he is advised to follow up with his primary care physician for further evaluation on an outpatient basis and possible sleep study. The Unit #: [id number] #: [id number] Patient: HELEN KIM patient has been on constant carbohydrate diet. Sliding scale insulin and routine home medications with the exception of metformin per hospital policy. Given the patient's chronic kidney disease and creatinine of 1.7, metformin is discontinued and the patient is continue on his other medications and follow up with his primary care physician. Dictated by... Carol Silva A.P.R.N. for Praful Posey/natalia TD: 09/26/2016 23:28 JOB #: [id number] DISCHARGE SUMMARY Page 1 of 1 X Carol Silva APRN X DISCHARGE SUMMARY
--- NOTE | ~2016-09-18 | CO ---
Unit #: [id number] #: [id number] Patient: HELEN KIM [id number] [address] [place], [place] [address] [id number] I MR#: [id number] NAME: HELEN KIM. ROOM: 469 Age: 46 Sex: M Admission Date: 09/18/2016 : 1970 Attending Physician: Isabel Pickett M.D. Primary Care Physician: [facility] Consultation Date: 09/20/2016 CONSULTATION REPORT HISTORY OF PRESENT ILLNESS Mr. Kim is a 46-year-old gentleman with longstanding diabetes, who has peripheral neuropathy. He states that he was walking on some [place] stones and stepped on a sharp rock. They caused the wound on the lateral plantar surface of the right foot despite wearing boots. He said the sharp edge of the rock came through the sole of the boot. He has had a wound since that time that he and his have been treating with peroxide and Betadine at home, but the wound has continued to worsen and he now has some swelling and increasing pain. In the emergency room, plain film showed no evidence of fracture or dislocation. There was significant soft tissue swelling. He denies fever or chills. PAST MEDICAL HISTORY Neuropathy, diabetes, hypertension. PAST SURGICAL HISTORY He has had previous cervical disk surgery and surgery to a finger for trauma. He has had right great toe surgery secondary to ingrown nail. ALLERGIES Allergic to penicillin. HOME MEDICATIONS Include Glucotrol, Glucophage, Claritin, lisinopril, and Invokana. FAMILY HISTORY Multiple family members with diabetes. SOCIAL HISTORY Nonsmoker or drinker. 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 and is at home. REVIEW OF SYSTEMS No fever, chills, or night sweats. He does have peripheral neuropathy. PHYSICAL EXAMINATION GENERAL: He is awake, alert, oriented. VITAL SIGNS: Temperature is 98.5, pulse 84, respirations 17, blood pressure 133/68. HEENT: Unremarkable. CARDIAC: Regular rhythm. LUNGS: Clear. ABDOMEN: Soft. EXTREMITIES: On the right foot in the plantar surface laterally beneath Unit #: [id number] #: [id number] Patient: HELEN KIM the fifth metatarsal phalangeal joint, there was a 2 x 1.8 cm open wound extending deep into the foot. In the central portion of the ulcer, it is necrotic with exudate and with pressure I could express gross purulent drainage. There is minimal cellulitis, but there is soft tissue edema. His foot is warm. He has good capillary refill and a palpable dorsalis pedis pulse. NEUROLOGIC: Grossly intact. No other skin rashes or lesions. DIAGNOSTIC STUDIES LABORATORY RESULTS: Comprehensive metabolic panel shows a BUN and creatinine 25 and 1.6, otherwise unremarkable. C-reactive protein is pending. White count 9200 with normal differential, hemoglobin 10.1, platelets 406,000. IMAGING STUDIES: Plain films of the foot show no fracture or dislocation. ASSESSMENT AND PLAN A 46-year-old gentleman with diabetes and neuropathy has a diabetic foot ulcer secondary to trauma. There was gross purulent drainage and necrosis. He has already been started on antibiotics and the Infectious Disease service has been consulted, so I will defer antibiotic choice to them. I did send a culture of the purulent drainage that I could express and I have ordered local wound care for the wound. I am going to get an MRI of the right foot today to rule out any underlying osteomyelitis. He will need surgical debridement of this diabetic foot wound given the necrosis and nonhealing and nonviable tissue. I have discussed this with the patient at length. He understands and agrees to proceed. Dictated by... Praful Allen/natalia TD: 09/20/2016 07:22 JOB #: [id number] CONSULTATION REPORT Page 1 of 1 X Shay Sanders MD CONSULTATION REPORT
--- NOTE | ~2016-09-18 | XA166 ---
[facility] A Service of [facility] RADIOLOGY TEXT RESULTS PATIENT: HELEN KIM LOCATION: [facility] 469-01 : 74 UNIT #: [id number] AGE: [address]: Isabel Pickett MD SEX: M ORDER DR: [id number] [place] [id number] [facility]. [place], [place] [address] [id number] I MR#: [id number] Acc #: [id number] NAME: HELEN KIM. : 1970 SEX: M STUDY DATE/TIME: 09/21/2016 9:36 UNIT: [facility] ROOM: [facility] STUDY DESCRIPTION: XA PICC Line Placement WO Port Attending Physician: Isabel Pickett M.D. Ordering Physician: Shay Sanders M.D. Primary Care Physician: [facility] IMAGING REPORT This report is preliminary unless electronic signature is present EXAM Right-sided PICC line placement INDICATION Need for IV access in a patient with a history of right foot osteomyelitis involving the fifth metatarsal head and neck. PRE-PROCEDURE The procedure was explained to the patient and/or patient human resources representative including risks, benefits, potential complications and potential for alternative forms of treatment. Informed consent was obtained, and prior to initiating the procedure a formal timeout procedure was performed. PROCEDURE Using full standard sterile barrier technique, including caps, gowns, gloves, masks, as well as sterile skin preparation and standard sterile draping, the right arm was prepped and draped in the usual fashion, and real-time sterile ultrasound guidance was used to localize an arm vein and to confirm vessel patency. A hard copy ultrasound image was recorded. After local anesthesia with 1% Xylocaine, the vein was punctured using real-time sterile ultrasound guidance, and an 0.018 guidewire was advanced into the superior vena cava, using fluoroscopic guidance. A 4 Icelandic single-lumen PICC was then measured and deployed with the tip positioned in the superior vena cava. The position of the line was documented with a radiographic image. The line was secured in place with an adhesive dressing and an antibiotic patch was applied. Total fluoro time was 0.3 minutes. AK was 12 mGy. IMPRESSION Successful placement of a 4 Icelandic single-lumen PowerPICC via the right arm under ultrasound and fluoroscopic guidance. The tip of the PICC is in good position in the superior vena cava. [facility]. [facility] A Service of [facility] RADIOLOGY TEXT RESULTS PATIENT: HELEN KIM LOCATION: [facility] 469- : [birth year] UNIT #: [id number] AGE: [address]: Isabel Pickett MD SEX: M ORDER DR: Dictated by... Audrey Krishna M.D. THIS IS AN ELECTRONICALLY VERIFIED REPORT Audrey Krishna M.D. at 09/22/2016 5:14 PM CARLOS/ryley TD: 09/22/2016 11:31 JOB #: [id number] MEDICAL IMAGING REPORT Page 1 of 1 COPY
[~2016-09-18 16:59] MED LIST changes: +LEVEMIR100 UNITS/ SUBQ; +NOVOLOG100 U/ML SUBQ; +ORBACTIV400 MG IV
[2016-09-18 18:26] LABS: BASOPHIL# 0.1 X10e3 (0-0.3); BASOPHIL% 1.1 % (0-2.5); EOSINOPHIL# 0.3 X10e3 (0-0.7); EOSINOPHIL% 2.6 % (0.0-7.0); HEMATOCRIT 29.5 % (38.0-50.0); HEMOGLOBIN 9.5 gm/dL (13.0-16.0); LYMPHOCYTE# 1.4 X10e3 (1.0-3.5); LYMPHOCYTE% 12.1 % (17.0-45.0); MEAN CELL VOLUME 81.8 FL (83-96); MEAN CORPUSCULAR HEMOGLOBIN 26.5 PG (28-34); MEAN CORPUSCULAR HGB CONC 32.3 g/dL (30-36); MEAN PLATELET VOLUME 8.3 FL (6.5-11.5); MONOCYTE# 1.2 X10e3 (0-1.0); MONOCYTE% 10.4 % (3.0-12.0); NEUTROPHIL# 8.6 X10e3 (1.5-7.1); NEUTROPHIL% 73.8 % (40-75); PLATELET COUNT 407 X10e3 (140-420); RED BLOOD COUNT 3.61 X10e (3.90-5.60); RED CELL DISTRIBUTION WIDTH 13.2 % (11.0-15.5); WHITE BLOOD COUNT 11.6 X10e3 (4.0-10.5)
[2016-09-18 18:31] LABS: DIFF IND NO
[2016-09-18 18:46] LABS: BILIRUBIN,TOTAL 0.5 mg/dL (0.2-2.0); CALCIUM SERUM 8.7 mg/dL (8.4-10.2); GLOM FILT RATE Estimated 39.4 mL/min (>60); POTASSIUM 3.9 mmol/L (3.5-5.1); PROTEIN TOTAL SERUM 7.6 g/dL (6.0-8.3)
[2016-09-18] MEDS ORDERED: METFORMIN PO (19:02)
[2016-09-18] MEDS ORDERED: CLARITIN10 M3 PO (19:02)
[2016-09-18] MEDS ORDERED: GLUCOTROL XL10 MG PO (19:02)
[2016-09-18] MEDS ORDERED: INVOKANA100 MG PO (19:03)
[2016-09-18] MEDS ORDERED: LISINOPRIL20 MG PO (19:03)
[2016-09-19 03:06] LABS: BASOPHIL# 0.1 X10e3 (0-0.3); BASOPHIL% 0.9 % (0-2.5); EOSINOPHIL# 0.6 X10e3 (0-0.7); HEMATOCRIT 27.8 % (38.0-50.0); HEMOGLOBIN 8.8 gm/dL (13.0-16.0); LYMPHOCYTE# 2.5 X10e3 (1.0-3.5); LYMPHOCYTE% 21.4 % (17.0-45.0); MEAN CELL VOLUME 82.7 FL (83-96); MEAN CORPUSCULAR HEMOGLOBIN 26.3 PG (28-34); MEAN CORPUSCULAR HGB CONC 31.8 g/dL (30-36); MEAN PLATELET VOLUME 7.5 FL (6.5-11.5); MONOCYTE# 1.4 X10e3 (0-1.0); MONOCYTE% 11.6 % (3.0-12.0); NEUTROPHIL# 7.3 X10e3 (1.5-7.1); NEUTROPHIL% 61.1 % (40-75); PLATELET COUNT 367 X10e3 (140-420); RED BLOOD COUNT 3.36 X10e (3.90-5.60); RED CELL DISTRIBUTION WIDTH 13.2 % (11.0-15.5); WHITE BLOOD COUNT 11.9 X10e3 (4.0-10.5)
[2016-09-19 03:07] LABS: DIFF IND NO
[2016-09-19 03:21] LABS: BUN/CREATININE RATIO 17.22; CALCIUM SERUM 8.4 mg/dL (8.4-10.2); CREATININE SERUM 1.8 mg/dL (0.6-1.4); GLOM FILT RATE Estimated 44.8 mL/min (>60); POTASSIUM 3.8 mmol/L (3.5-5.1)
[2016-09-20 03:17] LABS: HEMATOCRIT 31.6 % (38.0-50.0); HEMOGLOBIN 10.1 gm/dL (13.0-16.0); MEAN CELL VOLUME 83.2 FL (83-96); MEAN CORPUSCULAR HEMOGLOBIN 26.6 PG (28-34); MEAN CORPUSCULAR HGB CONC 31.9 g/dL (30-36); MEAN PLATELET VOLUME 7.8 FL (6.5-11.5); RED BLOOD COUNT 3.8 X10e (3.90-5.60); RED CELL DISTRIBUTION WIDTH 13.3 % (11.0-15.5); WHITE BLOOD COUNT 9.2 X10e3 (4.0-10.5)
[2016-09-20 03:44] LABS: ALBUMIN SERUM 2.7 g/dL (3.5-5.0); BILIRUBIN,TOTAL 0.3 mg/dL (0.2-2.0); BUN/CREATININE RATIO 15.62; CALCIUM SERUM 8.6 mg/dL (8.4-10.2); CREATININE SERUM 1.6 mg/dL (0.6-1.4); GLOM FILT RATE Estimated 51.7 mL/min (>60); POTASSIUM 4.7 mmol/L (3.5-5.1); PROTEIN TOTAL SERUM 6.8 g/dL (6.0-8.3)
[2016-09-21 03:54] LABS: HEMATOCRIT 29.8 % (38.0-50.0); HEMOGLOBIN 9.4 gm/dL (13.0-16.0); MEAN CORPUSCULAR HEMOGLOBIN 26.3 PG (28-34); MEAN CORPUSCULAR HGB CONC 31.7 g/dL (30-36); MEAN PLATELET VOLUME 7.9 FL (6.5-11.5); RED BLOOD COUNT 3.59 X10e (3.90-5.60); RED CELL DISTRIBUTION WIDTH 13.2 % (11.0-15.5); WHITE BLOOD COUNT 11.1 X10e3 (4.0-10.5)
[2016-09-21 04:19] LABS: ALBUMIN SERUM 2.7 g/dL (3.5-5.0); BILIRUBIN,TOTAL 0.6 mg/dL (0.2-2.0); BUN/CREATININE RATIO 12.94; CALCIUM SERUM 8.8 mg/dL (8.4-10.2); CREATININE SERUM 1.7 mg/dL (0.6-1.4); MAGNESIUM 1.9 mg/dL (1.6-3.0); PHOSPHOROUS 3.8 mg/dL (2.5-4.6); POTASSIUM 4.3 mmol/L (3.5-5.1); PROTEIN TOTAL SERUM 7.5 g/dL (6.0-8.3)
[2016-09-22 02:36] LABS: HEMOGLOBIN 8.7 gm/dL (13.0-16.0); MEAN CELL VOLUME 82.3 FL (83-96); MEAN CORPUSCULAR HEMOGLOBIN 26.6 PG (28-34); MEAN CORPUSCULAR HGB CONC 32.3 g/dL (30-36); MEAN PLATELET VOLUME 7.3 FL (6.5-11.5); RED BLOOD COUNT 3.28 X10e (3.90-5.60); RED CELL DISTRIBUTION WIDTH 13.2 % (11.0-15.5); WHITE BLOOD COUNT 10.1 X10e3 (4.0-10.5)
[2016-09-22 02:56] LABS: BUN/CREATININE RATIO 14.11; CALCIUM SERUM 8.2 mg/dL (8.4-10.2); CREATININE SERUM 1.7 mg/dL (0.6-1.4); MAGNESIUM 1.8 mg/dL (1.6-3.0); POTASSIUM 4.3 mmol/L (3.5-5.1)
[2016-09-22] MEDS ORDERED: CEFEPIME HCL2 GM IV (17:39)
[2016-09-22] MEDS ORDERED: CUBICIN IV (17:40)
[2016-09-22] MEDS ORDERED: PERCOCET5/325 PO (17:46)
[2016-09-22] MEDS ORDERED: DOCUSATE SODIU100 MG PO (17:46)
== END 2016-09-22 18:41 | disposition home health service (06) | DRG 854 ==
LOC: CFTX 16:59 → CED 16:59 → CFTX 17:33 → C4C 19:20 → CEDOF 19:20 → CFTX 19:56 → C4C 19:56 → CEDOF 19:56 → C4C 20:41 → CEDOF 20:41 → C4C 09-19 06:12 → CEDOF 09-19 13:30 → C4C 09-22 18:41
PROVIDERS: Internal Medicine; Orthopaedic Surgery; Physician Assistant; Specialist
PROC: 02HV33Z Insertion of Infusion Device into Superior Vena Cava, Percutaneous Approach (ICD-10-PCS; 2016-09-21)
PROC: B548ZZA Ultrasonography of Superior Vena Cava, Guidance (ICD-10-PCS; 2016-09-21)
PROC: 0Y6M0ZF Detachment at Right Foot, Partial 5th Ray, Open Approach (ICD-10-PCS; principal; 2016-09-21 09:00)
DX: A41.9 Sepsis, unspecified organism (principal); N17.9 Acute kidney failure, unspecified; M00.9 Pyogenic arthritis, unspecified; E11.42 Type 2 diabetes mellitus with diabetic polyneuropathy; E11.621 Type 2 diabetes mellitus with foot ulcer; N18.3 Chronic kidney disease, stage 3 (moderate); M86.9 Osteomyelitis, unspecified; L97.514 Non-pressure chronic ulcer of other part of right foot with necrosis of bone; E11.65 Type 2 diabetes mellitus with hyperglycemia; E11.69 Type 2 diabetes mellitus with other specified complication; Z79.84 Long term (current) use of oral hypoglycemic drugs; E66.01 Morbid (severe) obesity due to excess calories; Z68.39 Body mass index [BMI] 39.0-39.9, adult; D64.9 Anemia, unspecified; I12.9 Hypertensive chronic kidney disease with stage 1 through stage 4 chronic kidney disease, or unspecified chronic kidney disease; Z88.0 Allergy status to penicillin; Z83.3 Family history of diabetes mellitus
CPT/HCPCS: 73630; 73720; 76937; 77001; 80048; 80053; 82550; 82947; 83605; 83735; 84100; 85025; 85027; 85652; 86140; 87070; 87075; 87077; 87186; 87205; 88305; 88311; 94760; 94761; 97116; 97162; 99285; A9577; C1751; G8978-GP; G8979-GP; G8980-GP; J0692; J0878; J1650; J1815; J1885; J2185; J2250; J2270; J2405; J2765; J3010; J3370